=== PATIENT | male | born 1980 | race African-American/Black ===

== ENCOUNTER 2020-08-07 01:41 | Emergency (ER) | payer SELFPAY ==
[~2020-08-07] VITALS: Ht 193 cm; Wt 97.2 kg
[2020-08-07] MEDS ORDERED: ALBUTEROL SULFATE 2.5MG/0.5ML ONE (02:08)
[2020-08-07 02:13] LABS: BASOPHILS % (AUTO) 1 % (0-1); EOSINOPHILS % (AUTO) 3 % (1-7); LYMPHOCYTES % (AUTO) 43 % (22-44); MEAN CORPUSCULAR HEMOGLOBIN 33.1 pg (27.5-34.5); MEAN CORPUSCULAR HGB CONC 34.5 g/dL (33.2-36.2); MEAN PLATELET VOLUME 8.5 fL (7.4-10.4); MONOCYTES % (AUTO) 11 % (2-9); NEUTROPHILS % (AUTO) 42 % (42-75); PLATELET COUNT 226 x10^3/uL (130-400); RED BLOOD COUNT 4.36 x10^6/uL (4.38-5.82); RED CELL DISTRIBUTION WIDTH 12.9 % (9.4-14.8)
[2020-08-07 02:15] LABS: MD NO
[2020-08-07 02:24] LABS: ALBUMIN 3.6 g/dL (3.4-5.0); ANION GAP 8 mmol/L (5-15); CALCIUM 8.6 mg/dL (8.5-10.1); CHLORIDE 110 mmol/L (98-107); CREATININE 1.21 mg/dL (0.7-1.3)
[2020-08-07 02:27] LABS: TROPONIN I < 0.015 ng/mL (0.000-0.045)
[2020-08-07] MEDS ORDERED: ALBUTEROL SULFATE 2.5 MG/3 ML NPPB ONE (02:30)
--- NOTE | 2020-08-07 02:30 | NUR ---
PATIENT REPORT GIVEN TO ERNESTO JAVIER
[2020-08-07 03:40] VITALS: BP 111/69
== END 2020-08-07 04:01 | disposition home or self-care (01) ==
LOC: ED 03:00
DX: J45.909 Unspecified asthma, uncomplicated (principal); Z20.822 Contact with and (suspected) exposure to COVID-19; R06.02 Shortness of breath; R07.89 Other chest pain; R94.31 Abnormal electrocardiogram [ECG] [EKG]
CPT/HCPCS: 36415; 71045; 80048; 82040; 84484; 85025; 87635; 93005; 94640; 99285; J7512; J7613